=== PATIENT | female | born 1945 | race Caucasian/White ===

== ENCOUNTER 2017-06-30 12:16 | Observation (INO) | payer OTHER, BC ==
[~2017-06-30] VITALS: Ht 162.6 cm; Wt 61.7 kg
[~2017-06-30 12:16] MED LIST: ESCITALOPRAM OX10 MG PO; NAPROXEN375 M1 PO; PERCOCET 5/31 TABLET PO; WHEELCHAIR1 EACH MC
[2017-06-30 13:00] LABS: HEMATOCRIT 44.7 % (36.0-46.0); MCH 32.5 PG (29.0-34.0); MCHC 33.1 G/DL (30.0-36.0); MCV 98.2 FL (83-99); MEAN PLAT.VOLUME 10.2 uM^3 (9.5-12.4); PLATELET COUNT 200 K/uL (156-360); RBC DIS.WIDTH-CV 12.7 % (11.8-14.6); RBC DIS.WIDTH-SD 45.5 % (39-53); RED BLOOD COUNT 4.55 M/uL (3.80-5.20); WHITE BLOOD COUNT 6.3 K/uL (4.1-10.2)
[2017-06-30 13:08] LABS: CHLORIDE 104 mEq/L (99-109); POTASSIUM 3.5 mEq/L (3.7-5.4); SODIUM 141 mEq/L (136-147)
[2017-06-30 13:10] LABS: GLUCOSE 105 mg/dL (70-99)
[2017-06-30 13:11] LABS: ANION GAP 11 MEQ/L (2-14)
[2017-06-30 13:13] LABS: GFR ESTIMATE (CALCULATED) > 59 mL/min/
[2017-06-30 13:14] LABS: UREA NITROGEN (BUN) 17 mg/dL (9-23)
[2017-06-30 13:20] LABS: TROP-I INTERPRETATION NEGATIVE; TROPONIN-I < 0.01 ng/mL (0.0-0.30)
[2017-06-30] MEDS ORDERED: PRAVASTATIN SOD20 MG PO (15:21)
[2017-06-30] MEDS ORDERED: ZESTORETIC 20-1 EAC1 PO (15:21)
[2017-06-30] MEDS ORDERED: LEXAPRO20 MG PO (15:22)
[2017-06-30 17:12] VITALS: BP 117/57
[2017-06-30 19:45] VITALS: BP 123/60
[2017-06-30 23:55] VITALS: BP 106/54
[2017-07-01 05:20] LABS: CHLORIDE 106 mEq/L (99-109); SODIUM 139 mEq/L (136-147)
[2017-07-01 05:22] LABS: GLUCOSE 147 mg/dL (70-99)
[2017-07-01 05:23] LABS: ANION GAP 10 MEQ/L (2-14)
[2017-07-01 05:26] LABS: GFR ESTIMATE (CALCULATED) > 59 mL/min/
[2017-07-01 05:27] LABS: UREA NITROGEN (BUN) 23 mg/dL (9-23)
[2017-07-01 08:11] VITALS: BP 130/62
[2017-07-01 08:21] LABS: TROP-I INTERPRETATION NEGATIVE; TROPONIN-I < 0.01 ng/mL (0.0-0.30)
[2017-07-01] MEDS ORDERED: AZITHROMYCIN500 M1 PO (08:35)
[2017-07-01] MEDS ORDERED: PREDNISONE10 MG PO (08:36)
== END 2017-07-01 11:39 | disposition home or self-care (01) ==
LOC: EME 12:16 → ENRESERV 13:52 → EDOF 13:58 → 5WEST 13:58 → ENRESERV 14:27 → 5WEST 16:38 → ENPENDDIS 07-01 → 5WEST 07-01 11:39
PROVIDERS: Physician Assistant
DX: J96.01 Acute respiratory failure with hypoxia (principal); E87.6 Hypokalemia; I10 Essential (primary) hypertension; Z85.3 Personal history of malignant neoplasm of breast; F32.9 Major depressive disorder, single episode, unspecified; Z90.710 Acquired absence of both cervix and uterus; Z90.13 Acquired absence of bilateral breasts and nipples; Z82.49 Family history of ischemic heart disease and other diseases of the circulatory system; Z82.3 Family history of stroke; Z88.2 Allergy status to sulfonamides; Z88.5 Allergy status to narcotic agent
CPT/HCPCS: 71020; 71275; 80048; 81003; 84484; 85027; 85379; 87040; 87086; 87502; 93005; 94640; 94799; 99281; 99285; G0378; J0456; J2930; J7512

== ENCOUNTER 2018-01-19 22:30 | Emergency (ER) | payer BC, OTHER ==
[~2018-01-19] VITALS: Ht 162.6 cm; Wt 62.5 kg
[~2018-01-19 22:30] MED LIST changes: +AZITHROMYCIN500 M1 PO; +LEXAPRO20 MG PO; +PRAVASTATIN SOD20 MG PO; +PREDNISONE10 MG PO; +ZESTORETIC 20-1 EAC1 PO
[2018-01-19 22:58] LABS: HEMATOCRIT 42.3 % (36.0-46.0); HEMOGLOBIN 14.4 G/DL (11.9-15.5); MCH 32.5 PG (29.0-34.0); MCV 95.5 FL (83-99); PLATELET COUNT 223 K/uL (156-360); RBC DIS.WIDTH-CV 12.5 % (11.8-14.6); RBC DIS.WIDTH-SD 44.3 % (39-53); RED BLOOD COUNT 4.43 M/uL (3.80-5.20); WHITE BLOOD COUNT 11.1 K/uL (4.1-10.2)
[2018-01-19 23:14] LABS: ALBUMIN 4.2 g/dL (3.2-4.8); CHLORIDE 104 mEq/L (99-109); POTASSIUM 3.3 mEq/L (3.7-5.4); SODIUM 142 mEq/L (136-147)
[2018-01-19 23:17] LABS: GLUCOSE 123 mg/dL (70-99); TOTAL PROTEIN 7.1 g/dL (6.4-8.3)
[2018-01-19 23:19] LABS: TOTAL BILIRUBIN 1.7 mg/dL (0.0-1.0)
[2018-01-19 23:20] LABS: ALKALINE PHOSPHATASE 72 IU/L (3-129); CREATININE 0.9 mg/dL (0.6-1.3); GFR ESTIMATE (CALCULATED) > 59 mL/min/
[2018-01-19 23:21] LABS: UREA NITROGEN (BUN) 16 mg/dL (9-23)
[2018-01-19 23:22] LABS: AST (GOT) 13 IU/L (2-34)
[2018-01-19 23:33] LABS: APPEARANCE CLOUDY ((CLEAR)); BILIRUBIN NEGATIVE; BLOOD LARGE; COLOR YELLOW ((YELLOW)); GLUCOSE (STRIP) NEGATIVE; KETONES NEGATIVE; LEUKOCYTES LARGE; NITRITE POSITIVE; PROTEIN (STRIP) 100; SPECIFIC GRAVITY 1.012 (1.000-1.030); UROBILINOGEN 0.2 MG/DL (0.2-1.0)
[2018-01-19 23:44] LABS: BACTERIA RARE /HPF; EPITHELIAL CELLS RARE /HPF; MUCUS TRACE /LPF; RED BLOOD CELLS TNTC /HPF (0-5); UCUL ADDED? YES; WHITE BLOOD CELLS TNTC /HPF (0-5)
[2018-01-19 23:50] LABS: ALT (GPT) 9 IU/L (3-49); DIRECT BILIRUBIN 0.6 mg/dL (0.0-0.3)
[2018-01-20] MEDS ORDERED: PYRIDIUM200 MG PO (01:28)
[2018-01-20] MEDS ORDERED: KEFLEX500 MG PO (01:28)
[2018-01-20] MEDS ORDERED: ZOFRAN ODT4 MG PO (01:28)
[2018-01-20 02:38] VITALS: BP 169/98
== END 2018-01-20 02:39 | disposition home or self-care (01) ==
LOC: EME 22:30
DX: N12 Tubulo-interstitial nephritis, not specified as acute or chronic (principal); R03.0 Elevated blood-pressure reading, without diagnosis of hypertension; K58.9 Irritable bowel syndrome, unspecified; F32.9 Major depressive disorder, single episode, unspecified; Z85.3 Personal history of malignant neoplasm of breast; Z92.3 Personal history of irradiation; Z90.49 Acquired absence of other specified parts of digestive tract; Z88.2 Allergy status to sulfonamides; Z88.5 Allergy status to narcotic agent
CPT/HCPCS: 74176; 80053; 81003; 82248; 85027; 87077; 87086 GA; 87186; 99281; 99284; J0696